=== PATIENT | male | born 1940 | race Caucasian/White ===

== ENCOUNTER → 2017-12-10 | Outpatient (CLI) | payer OTHER, BC | LOC: FIMAGING 15:29 | PROVIDERS: ATTEND Internal Medicine | DX: R09.89 Other specified symptoms and signs involving the circulatory and respiratory systems (principal) | CPT/HCPCS: 82607-90 ==

== ENCOUNTER → 2018-01-21 | Outpatient (CLI) | payer OTHER, BC | LOC: FIMAGING 14:48 | PROVIDERS: ATTEND Nurse Practitioner Adult Health | DX: R07.89 Other chest pain (principal) ==